=== PATIENT | female | born 1965 | race Caucasian/White ===

== ENCOUNTER 2020-02-04 16:12 | Emergency (ER) | payer BC ==
--- NOTE | 2020-02-04 16:28 | UC ---
FLU HPI - HPI Summary HPI Summary: 54 yo female presents with concerns about COVID. She tells me that on 04/01 she developed fatigue, dry cough, and subjective intermittent fevers. She has been taking ibuprofen for her symptoms with little relief. She states she had an exposure to a co-worker who tested positive for COVID on 01/28. She denies sore throat, SOB, chest pain, abdominal pain, vomiting. She does not smoke. No recent travel. - History of Current Complaint Stated Complaint: RESP COMPLAINT Time Seen by Provider: 02/04/20 16:28 Hx Obtained From: Patient Onset/Duration: Sudden Onset Severity Currently: Moderate Severity Initially: Moderate Pain Intensity: 5 Pain Scale Used: 0-10 Numeric - Allergy/Home Medications Allergies/Adverse Reactions: Allergies Allergy/AdvReac Type Severity Reaction Status Date / Time ciprofloxacin [From Cipro] Allergy Hives Verified 02/04/20 17:14 erythromycin base Allergy Hives Verified 02/04/20 17:14 MS Ciprofloxacin Allergy Nausea And Verified 02/04/20 16:56 [Ciprofloxacin] Vomiting MS Erythromycin Allergy Hives Verified 02/04/20 16:56 [Erythromycin] MS Penicillins [Penicillins] Allergy Hives Verified 02/04/20 16:56 Penicillins Allergy Hives Verified 02/04/20 17:14 Home Medications: Home Medications Escitalopram Oxalate [Lexapro 10 mg] 20 mg PO DAILY 04/17/13 [History Confirmed 02/04/20] Solifenacin Succinate [Vesicare] 5 mg PO DAILY 04/17/13 [History Confirmed 02/03] Ibuprofen TAB* [Motrin TAB* 600 MG] 400 mg PO Q8H 02/04/20 [History Confirmed ] PMH/Surg Hx/FS Hx/Imm Hx Psychological History: Anxiety, Depression - Surgical History Surgical History: Yes Surgery Procedure, Year, and Place: nOSE FRACTURE REPAIR. LEFT BREAST CYST REMOVED. CERVICAL POLYLP REMOVED 2010 - Family History Known Family History: Positive: Hypertension - Social History Occupation: Employed Full-time Lives: With Family Alcohol Use: Occasionally Substance Use Type: None Smoking Status (MU): Never Smoked Tobacco Review of Systems All Other Systems Reviewed And Are Negative: No Constitutional: Positive: Fever, Fatigue Skin: Positive: Negative Eyes: Positive: Negative ENT: Positive: Sinus Congestion Respiratory: Positive: Cough Cardiovascular: Positive: Negative Gastrointestinal: Positive: Negative Neurological/Mental Status: Positive: Negative Psychological: Positive: Negative Physical Exam - Summary Physical Exam Summary: GENERAL: NAD. WDWN. No pain distress. SKIN: No rashes, sores, lesions, or open wounds. HEENT: Head: AT/NC Eyes: EOM intact. Conjunctiva clear without inflammation or discharge. Ears: Hearing grossly normal. TMs intact, no bulging, erythema, or edema. Nose: Nasal mucosa pink and moist. NTTP maxillary and frontal sinus. Throat: Posterior oropharynx without exudates, erythema, or tonsillar enlargement. Uvula midline. NECK: Supple. Nontender. No lymphadenopathy. CHEST: CTAB. No r/r/w. No accessory muscle use. Breathing comfortably and in no distress. CV: RRR. Pulses intact. Cap refill <2seconds NEURO: Alert. PSYCH: Age appropriate behavior. Triage Information Reviewed: Yes Vital Signs: Vital Signs: Temp Pulse Resp BP Pulse Ox 98.5 F 77 18 144/80 95 02/04/20 16:56 02/04/20 16:56 02/04/20 16:56 02/04/20 16:56 02/04/20 16:56 Laboratory Tests 02/04/20 02/04/20 16:55 16:58 Influenza A (Rapid) Negative Influenza B (Rapid) Negative Group A Strep Rapid Negative Vital Signs Reviewed: Yes Flu Course/Dx - Course Course Of Treatment: POC strep and flu negative. Exam performed utilizing CDC recommended PPE. You are being tested for COVID-19. You need to quarantine yourself in a bedroom and bathroom only you are using. You may not leave the house. [facility] will contact you and notify of results when they are available. Advised to be on home isolation until cleared by the health department. Go to ED for increased SOB or any difficulty breathing - new or worsening symptoms. - Differential Dx/Diagnosis Provider Diagnosis: Viral syndrome Discharge ED - Sign-Out/Discharge Documenting (check all that apply): Patient Departure All imaging exams completed and their final reports reviewed: No Studies - Discharge Plan Condition: Stable Disposition: HOME Patient Education Materials: Viral Syndrome (ED) Referrals: Roderick Mccullough MD [Primary Care Provider] - Additional Instructions: FLU AND STREP NEGATIVE TODAY. You are being tested for COVID-19. You need to quarantine yourself in a bedroom and bathroom only you are using. You may not leave the house. [facility] will contact you and notify of results when they are available. Advised to be on home isolation until cleared by the health department. Go to ED for increased SOB or any difficulty breathing - new or worsening symptoms. - Billing Disposition and Condition Condition: STABLE Disposition: Home
[2020-02-04 16:59] VITALS: BP 144/80
[2020-02-04 17:10] LABS: Influenza A Molecular Negative (Negative); Influenza B Molecular Negative (Negative)
== END 2020-02-04 17:30 | disposition home or self-care (01) ==
LOC: UCEAST 16:12
DX: B34.9 Viral infection, unspecified (principal); F41.8 Other specified anxiety disorders; Z88.1 Allergy status to other antibiotic agents; Z88.0 Allergy status to penicillin
CPT/HCPCS: 87651; 99201; G0463; U0002